=== PATIENT | female | born 1995 | race Caucasian/White ===

== ENCOUNTER 2019-03-07 04:10 | Emergency (ER) | payer SELFPAY ==
[2019-03-07] MEDS ORDERED: Morphine 4 MG/ML VIAL ONE (04:27)
[2019-03-07] MEDS ORDERED: Azithromycin 250 MG TAB ONE (04:27)
[2019-03-07] MEDS ORDERED: Acetaminophen 500 MG TAB ONE (04:28)
[2019-03-07] MEDS ORDERED: Ondansetron ODT 4 MG TAB ONE (05:20)
== END 2019-03-07 05:38 | disposition home or self-care (01) ==
LOC: MADERS 04:10
DX: H66.92 Otitis media, unspecified, left ear (principal)
CPT/HCPCS: J2270; Q0162

== ENCOUNTER 2019-03-09 12:49 | Emergency (ER) | payer SELFPAY ==
[2019-03-09 13:46] LABS: #Basophils 0.1 thou/uL (0.0-0.2); #Eosinphils 0.1 thou/uL (0.0-0.7); #Lymphocytes 2.1 thou/uL (1.20-3.40); #Monocytes 0.8 thou/uL (0.11-0.59); #Neutrophils 5.7 thou/uL (1.40-6.50); %Basophils 0.9 % (0.0-1.0); %Eosinophils 1.2 % (0.0-10.0); %Lymphocytes 23.9 % (21.0-51.0); %Monocytes 8.7 % (0.0-10.0); %Neutrophils 65.3 % (42.0-75.0); Hemoglobin 12.6 g/dL (12.0-16.0); Mean Corpuscular HGB CONC 31.4 g/dL (32.0-36.0); Mean Corpuscular Hemoglobin 27.3 pg (27.0-31.0); Mean Platelet Volume 5.7 fL (7.4-10.4); Platelet Count 381 thou/uL (130-400); Red Blood Cell (RBC) Count 4.63 mill/uL (4.20-5.40); White Blood Cell (WBC) Count 8.8 thou/uL (4.8-10.8)
[2019-03-09 13:55] LABS: BHCG - Serum POSITIVE (NEGATIVE)
[2019-03-09 13:56] LABS: Pregs Control Background? CLEAR/WHITE (CLR/WHITE); Pregs Control Bar Appear? YES (CONTROL BAR)
[2019-03-09 14:01] LABS: ALT (SGPT) 14 U/L (8-55); AST (SGOT) 15 U/L (5-34); Albumin 4.6 g/dL (3.5-5.0); Alkaline Phosphatase 46 U/L (40-110); Anion Gap 14 mmol/L (10-20); BUN (Urea Nitrogen) 8 mg/dL (7.0-18.7); Bilirubin, Total 0.9 mg/dL (0.2-1.2); Calc. Creatinine Clearance 0 mL/min (70-130); Calcium 9.6 mg/dL (7.8-10.44); Carbon Dioxide 22 mmol/L (22-29); Chloride 108 mmol/L (98-107); Estimated GFR-MDRD Greater than 90; Glucose 88 mg/dL (70-105); Potassium 4.6 mmol/L (3.5-5.1); Protein, Total 7.6 g/dL (6.0-8.3); Sodium 139 mmol/L (136-145)
== END 2019-03-09 14:29 | disposition short-term general hospital (02) ==
LOC: MADERS 12:49
DX: O20.0 Threatened abortion (principal); Z3A.10 10 weeks gestation of pregnancy
CPT/HCPCS: 80053; 84702; 84703; 85025; 99284

== ENCOUNTER 2019-04-29 13:52 | Emergency (ER) | payer SELFPAY | END 2019-04-29 16:00 | disposition home or self-care (01) | LOC: MADERS 13:52 | DX: H66.002 Acute suppurative otitis media without spontaneous rupture of ear drum, left ear (principal) | CPT/HCPCS: 99283 ==

== ENCOUNTER 2019-05-06 20:15 | Emergency (ER) | payer SELFPAY ==
[2019-05-06] MEDS ORDERED: Azithromycin 250 MG TAB ONE (20:53)
[2019-05-06] MEDS ORDERED: Naproxen 500 MG TAB ONE (20:53)
[2019-05-06] MEDS ORDERED: HYDROcodone/Acetaminophen 5/325 mg Tablet ONE (20:53)
== END 2019-05-06 21:04 | disposition home or self-care (01) ==
LOC: MADERS 20:15
DX: H66.92 Otitis media, unspecified, left ear (principal)
CPT/HCPCS: 99283